=== PATIENT | male | born 1990 | race Caucasian/White ===

== ENCOUNTER 2018-07-22 07:15 | Emergency (ER) | payer MEDICAID ==
[2018-07-22] MEDS ORDERED: Dexamethasone 10 MG/ML VIAL ONE (07:46)
== END 2018-07-22 07:52 | disposition home or self-care (01) ==
LOC: ERS 07:15
DX: J02.0 Streptococcal pharyngitis (principal); H92.02 Otalgia, left ear; I10 Essential (primary) hypertension; F31.9 Bipolar disorder, unspecified; Z79.899 Other long term (current) drug therapy
CPT/HCPCS: 99282; J1100